=== PATIENT | female | born 1995 | race Caucasian/White ===

== ENCOUNTER 2017-04-13 21:01 | Emergency (ER) | payer OTHER ==
[2017-04-13 21:13] VITALS: PULSE 69; RESP 18; O2SAT 98
--- NOTE | 2017-04-13 22:34 | ED PDOC ---
Arrival/HPI - General Chief Complaint: Female Genitourinary Time Seen by Provider: 04/13/17 22:20 Historian: Patient - History of Present Illness Narrative History of Present Illness (Text): 04/13/17 22:30 21-year-old female presents today with concerns for a mucosal type discharge from the vagina. Patient states she started depo shot in february. states she didnt get period in february but did get menstral in March .pt states she is currenty menstrating and spotting, but noticed a thick skin-like material when she was wiping. pt came to er for evaluation due to concern for strange discharge. c/o cramping. no vomiting/diarrhea. no cp or sob. no urinary symptoms. denies . no other complaints. Time/Duration: Prior to Arrival Symptom Onset: Gradual Symptom Course: Improving Quality: Cramping Severity Level: 2 Past Medical History - Provider Review Nursing Documentation Reviewed: Yes - Travel History Have you recently traveled outside [place] w/in the past 3 mons?: No - Psychiatric Hx Substance Use: No Family/Social History - Physician Review Nursing Documentation Reviewed: Yes Family/Social History: Unknown Family HX Smoking Status: n Hx Alcohol Use: Yes Hx Substance Use: No Allergies/Home Meds Allergies/Adverse Reactions: Allergies No Known Allergies Allergy (Verified 08/14/15 21:11) Review of Systems - Review of Systems Constitutional: absent: Fatigue, Fevers Respiratory: absent: SOB, Cough Cardiovascular: absent: Chest Pain, Palpitations Gastrointestinal: Abdominal Pain (abd cramping). absent: Constipation, Diarrhea , Nausea, Vomiting Genitourinary Female: Vaginal Bleeding. absent: Dysuria, Frequency, Hematuria Musculoskeletal: absent: Arthralgias, Back Pain, Neck Pain Skin: absent: Rash, Pruritis Neurological: absent: Headache, Dizziness Physical Exam Vital Signs Reviewed: Yes Vital Signs Temp Pulse Resp BP Pulse Ox 04/13/17 21:08 98.6 F 69 18 118/64 98 Temperature: Afebrile Blood Pressure: Normal Pulse: Regular Respiratory Rate: Normal Appearance: Positive for: Well-Appearing, Non-Toxic, Comfortable Pain Distress: None Mental Status: Positive for: Alert and Oriented X 3 - Systems Exam Head: Present: Atraumatic Neck: Present: Normal Range of Motion Respiratory/Chest: Present: Clear to Auscultation, Good Air Exchange. No: Respiratory Distress, Accessory Muscle Use Cardiovascular: Present: Regular Rate and Rhythm, Normal S1, S2. No: Murmurs Abdomen: Present: Normal Bowel Sounds. No: Tenderness, Distention, Peritoneal Signs, Rebound, Guarding Genitourinary/Pelvic Exam: Present: Normal External Genitalia, Cervical os Closed, Other (chaparoned by MAXIME benavides). No: Vaginal Discharge, Vaginal Bleeding, Vaginal Lesions, Adenexal Tenderness, Adenexal Mass, Cervical Motion Tendernes, Odor Back: Present: Normal Inspection Neurological: Present: GCS=15 Skin: Present: Warm, Dry, Normal Color. No: Rashes Psychiatric: Present: Alert, Oriented x 3 Medical Decision Making ED Course and Treatment: 04/13/17 22:35 21yr old female with abdominal cramping currently menstrating with abnormal discharge which she describes as skin like/mucosal. pt showed the piece of discharge that she had; it appears to be the lining of the endometrium will check transvaginal us. pt non toxic well appearing; no distress. US;FINDINGS: Uterus/cervix: The uterus is retroverted. No myometrial mass. Ovaries: Unremarkable. Free fluid: No free fluid. Other findings: No acute findings. IMPRESSION: No acute findings. pt non toxic well appearing; no distress. stable vitals; will d/c home to f/u with MEAL COOK. discussed results with patient in depth; advised f/u with seat cover cutter . impression; vaginal bleeding motrin every 6 hours as needed for pain increase fluids follow up with the primary care physician within the next 2 days follow up with the MEAL COOK within the next 2 days return if symptoms worsen,persist or if new symptoms develop. 04/13/17 23:49 - RAD Interpretation Radiology Orders: 04/13/17 22:22 TRANSVAGINAL [US] Stat Disposition/Present on Arrival - Present on Arrival Any Indicators Present on Arrival: No History of DVT/PE: No History of Uncontrolled Diabetes: No Urinary Catheter: No History of Decub. Ulcer: No History Surgical Site Infection Following: None - Disposition Have Diagnosis and Disposition been Completed?: Yes Diagnosis: Vaginal bleeding Disposition: HOME/ ROUTINE Disposition Time: 23:50 Patient Plan: Discharge Patient Problems: Current Active Problems Problem Status Onset Vaginal bleeding Acute Condition: GOOD Additional Instructions: motrin every 6 hours as needed for pain increase fluids follow up with the primary care physician within the next 2 days follow up with the MEAL COOK within the next 2 days return if symptoms worsen,persist or if new symptoms develop. Referrals: Ida Pitt MD [Staff Provider] - Follow up with primary Kadi Gonzalez MD [Staff Provider] - Follow up with primary
[2017-04-13 23:41] VITALS: TEMP 98.6
[2017-04-14 00:19] VITALS: BP 120/67
--- NOTE | 2017-04-14 08:21 | US ---
HISTORY: vaginal bleeding COMPARISON: None available. TECHNIQUE: Transvaginal and transabdominal FINDINGS: UTERUS: Measures 9.3 x 4.0 x 5.2 cm. Normal in size and appearance. No fibroid or other mass lesion seen. ENDOMETRIUM: Measures 7 mm in diameter. No endometrial fluid or soft tissue identifiable CERVIX: No cervical abnormality identified. RIGHT OVARY: Measures 3.2 x 2.2 x 2.7 cm. No solid mass. Normal flow. LEFT OVARY: Measures 2.7 x 1.6 x 2.0 cm. No solid mass. Normal flow. FREE FLUID: No significant free fluid noted. OTHER FINDINGS: None. IMPRESSION: Unremarkable pelvic ultrasound examination. Preliminary interpretation of this examination was reported by [facility] at 11:43 p.m. on 04/13/2017. There is concurrence of this report with the preliminary interpretation.
== END 2017-04-13 23:50 | disposition home or self-care (01) ==
LOC: ED 21:01
DX: N93.9 Abnormal uterine and vaginal bleeding, unspecified (principal)

== ENCOUNTER 2017-05-31 21:01 | Emergency (ER) | payer OTHER ==
[2017-05-31 21:19] VITALS: BMI 20.9
[2017-05-31 21:33] VITALS: TEMP 98; O2SAT 99
--- NOTE | 2017-05-31 21:52 | ED PDOC ---
Arrival/HPI - General Chief Complaint: Female Genitourinary Time Seen by Provider: 05/31/17 21:27 Historian: Patient - History of Present Illness Narrative History of Present Illness (Text): 06/01/17 00:13 21 year old female who presents to the emergency department for STD testing. She states that her boyfriend was recently diagnosed with genital herpes 2 -3 days ago and wanted to get tested. Patient has no symptoms and denies any rashes , lesions, sores, urinary symptoms, vaginal discharge, fever, chills, or any other complaints. She states that she had full lab work done at her [facility] in February 2017 including lab, urinalysis and PAP smear, which were normal. Patient also states she was sexually active with her boyfriend and used no protection. Time/Duration: Other Symptom Course: Other Context: Home Past Medical History - Provider Review Nursing Documentation Reviewed: Yes - Psychiatric Hx Psychophysiologic Disorder: No Hx Substance Use: No - Surgical History Hx Orthopedic Surgery: Yes (Ankle) - Anesthesia Hx Anesthesia: Yes Family/Social History - Physician Review Nursing Documentation Reviewed: Yes Family/Social History: No Known Family HX Smoking Status: Never Smoked Hx Alcohol Use: Yes Frequency of alcohol use: Socially Hx Substance Use: No Allergies/Home Meds Allergies/Adverse Reactions: Allergies No Known Allergies Allergy (Verified 05/31/17 21:20) Review of Systems - Physician Review All systems were reviewed & negative as marked: Yes - Review of Systems Constitutional: Normal. absent: Fevers, Night Sweats Eyes: Normal ENT: Normal Genitourinary Female: Normal. absent: Dysuria, Vaginal Discharge Skin: absent: Rash, Skin Lesions, Ulcer Physical Exam Vital Signs Reviewed: Yes Vital Signs Temp Pulse Resp BP Pulse Ox 05/31/17 22:58 57 L 14 110/66 99 05/31/17 21:32 98.0 F 56 L 16 125/65 99 Temperature: Afebrile Blood Pressure: Normal Pulse: Regular Respiratory Rate: Normal Appearance: Positive for: Well-Appearing Pain Distress: None Mental Status: Positive for: Alert and Oriented X 3 - Systems Exam Head: Present: Atraumatic Pupils: Present: PERRL Extroacular Muscles: Present: EOMI Conjunctiva: Present: Normal Ears: Present: Normal Mouth: Present: Moist Mucous Membranes Pharnyx: Present: Normal Nose (External): Present: Atraumatic Neck: Present: Normal Range of Motion Respiratory/Chest: Present: Clear to Auscultation, Good Air Exchange. No: Respiratory Distress, Accessory Muscle Use Cardiovascular: Present: Regular Rate and Rhythm, Normal S1, S2. No: Murmurs Abdomen: Present: Normal Bowel Sounds. No: Tenderness, Distention, Peritoneal Signs Back: Present: Normal Inspection Upper Extremity: Present: Normal Inspection. No: Cyanosis, Edema Lower Extremity: Present: Normal Inspection. No: Edema Neurological: Present: GCS=15, CN II-XII Intact, Speech Normal Skin: Present: Warm, Dry, Normal Color. No: Rashes Psychiatric: Present: Alert, Oriented x 3, Normal Insight, Normal Concentration Medical Decision Making ED Course and Treatment: 05/31/17 21:52 Impression: 21 yo F concerned for possible genital herpes exposure. Plan: -- Urine Test -- HSV 1, HSV 2 Progress Notes: Lab for HSV 1 & 2 IGG ordered and sent. [facility] [place] (-). Patient advised to f/u results with her supervisor packing. Informed that she will be notified of any (+) results. Patient states she fully agrees with and understands discharge instructions. States that she agrees with the plan and disposition. Verbalized and repeated discharge instructions and plan. I have given the patient opportunity to ask any additional questions. - Lab Interpretations Lab Results: Lab Results 05/31/17 21:45: Urine Color Yellow, Urine Appearance Clear, Urine pH 6.0, Ur Specific [place] 1.025, Urine Protein Negative, Urine Glucose (UA) Negative, Urine Ketones Negative, Urine Blood Negative, Urine Nitrate Negative, Urine Bilirubin Negative, Urine Urobilinogen 0.2, Ur Leukocyte Esterase Negative I have reviewed the lab results: Yes - PA / HOT KNIFE FOXING CUTTER / Resident Statement MD/DO has reviewed & agrees with the documentation as recorded. - Scribe Statement The provider has reviewed the documentation as recorded by the Mattibjohn Cueto training with Tracy Marvin All medical record entries made by the Mattibjohn were at my direction and personally dictated by me. I have reviewed the chart and agree that the record accurately reflects my personal performance of the history, physical exam, medical decision making, and the department course for this patient. I have also personally directed, reviewed, and agree with the discharge instructions and disposition. Disposition/Present on Arrival - Present on Arrival Any Indicators Present on Arrival: No History of DVT/PE: No History of Uncontrolled Diabetes: No Urinary Catheter: No History of Decub. Ulcer: No History Surgical Site Infection Following: None - Disposition Have Diagnosis and Disposition been Completed?: Yes Diagnosis: Concern about sexually transmitted disease in female without diagnosis Disposition: HOME/ ROUTINE Disposition Time: 21:50 Patient Plan: Discharge Condition: STABLE Discharge Instructions (ExitCare): Sexually Transmitted Diseases (ED) Print Language: SLOVAK Additional Instructions: Follow-up with her COACH OPERATOR in 2 days without fail. Return to the emergency room at any time for any new worsening symptoms If you had an STI test: It will take 48 hours for the results. Please follow up with medical records to see the final results, if you have not heard back after 1 week Referrals: PCP,NO [Primary Care Provider] - Follow up with primary Forms: Goko (Pakistani)
[2017-05-31 21:58] LABS: URINE BILIRUBIN NEGATIVE (NEGATIVE); URINE BLOOD NEGATIVE (NEGATIVE); URINE GLUCOSE (UA) NEGATIVE (NEGATIVE); URINE LEUKOCYTE ESTERASE NEGATIVE Leu/uL (NEGATIVE); URINE NITRATE NEGATIVE (NEGATIVE); URINE PROTEIN NEGATIVE mg/dL (<30 mg/dL); URINE UROBILINOGEN 0.2 E.U./dL (<1 E.U./dL)
[2017-05-31 22:04] LABS: URINE APPEARANCE CLEAR (CLEAR); URINE COLOR YELLOW (YELLOW)
[2017-05-31 22:58] VITALS: BP 110/66; PULSE 57; RESP 14
== END 2017-05-31 23:01 | disposition home or self-care (01) ==
LOC: ED 21:01
DX: Z71.1 Person with feared health complaint in whom no diagnosis is made (principal)

== ENCOUNTER 2017-07-16 17:23 | Emergency (ER) | payer OTHER ==
[2017-07-16 17:24] VITALS: BMI 20.9
[2017-07-16] MEDS ORDERED: Sodium Chloride 0.9% 1,000 ML IV STA (17:40)
--- NOTE | 2017-07-16 17:40 | ED PDOC ---
"Arrival/HPI - General Time Seen by Provider: 07/16/17 17:31 Historian: Patient - History of Present Illness Narrative History of Present Illness (Text): 07/16/17 17:31 21 y/o female, pmh including UTI, nkda, c/o diarrhea and fatigue x 2-3 days. Pt. stated that she has been getting generalized abdominal pain with diarrhea for the past 2-3 days, average 4-5 times perday with watery stool, no recent traveling and no recent antibiotic use for the past 4 weeks, stated that she feels fatigue and tired from the diarrhea, no night sweat, no weight loss, no vaginal bleeding or discharge, no pelvic cramp, no other medical or psychological complaints. Past Medical History - Provider Review Nursing Documentation Reviewed: Yes - Psychiatric Hx Psychophysiologic Disorder: No Hx Substance Use: No - Surgical History Hx Orthopedic Surgery: Yes (Ankle) - Anesthesia Hx Anesthesia: Yes Family/Social History - Physician Review Nursing Documentation Reviewed: Yes Family/Social History: Unknown Family HX Smoking Status: Never Smoked Hx Alcohol Use: Yes Hx Substance Use: No Allergies/Home Meds Allergies/Adverse Reactions: Allergies No Known Allergies Allergy (Verified 05/31/17 21:20) Review of Systems - Review of Systems Constitutional: Fatigue. absent: Fevers Eyes: absent: Vision Changes ENT: absent: Hearing Changes Respiratory: absent: SOB, Cough Cardiovascular: absent: Chest Pain Gastrointestinal: Abdominal Pain, Diarrhea. absent: Nausea, Vomiting Genitourinary Female: absent: Dysuria, Frequency Musculoskeletal: Myalgias. absent: Arthralgias, Joint Swelling Physical Exam Vital Signs Reviewed: Yes Vital Signs Temp Pulse Resp BP Pulse Ox 07/16/17 20:50 79 18 122/69 98 07/16/17 17:42 98.2 F 86 18 124/75 98 Temperature: Afebrile Blood Pressure: Normal Pulse: Regular Respiratory Rate: Normal Appearance: Positive for: Well-Appearing, Non-Toxic Pain Distress: Moderate Mental Status: Positive for: Alert and Oriented X 3 - Systems Exam Head: Present: Atraumatic, Normocephalic Pupils: Present: PERRL Extroacular Muscles: Present: EOMI Conjunctiva: Present: Normal Mouth: Present: Moist Mucous Membranes Pharnyx: No: ERYTHEMA, EXUDATE, TONSILS ENLARGED, Peritonsilar Swelling, Muffled /Hoarse Voice, Strider, Soft Palate/Uvular Edema Nose (External): Present: Atraumatic. No: Abrasion, Contusion, Laceration, Lesions Nose (Internal): Present: Normal Inspection, No Active Bleeding. No: Rhinorrhea , Septal Deviation, Septal Hematoma, Epistaxis Neck: Present: Normal Range of Motion Respiratory/Chest: Present: Clear to Auscultation, Good Air Exchange. No: Respiratory Distress, Accessory Muscle Use Cardiovascular: Present: Regular Rate and Rhythm, Normal S1, S2. No: Murmurs Abdomen: Present: Tenderness (periumbilical and generalized tenderness), Normal Bowel Sounds. No: Distention, Peritoneal Signs, Rebound, Guarding Back: Present: Normal Inspection Upper Extremity: Present: Normal Inspection. No: Cyanosis, Edema Lower Extremity: Present: Normal Inspection. No: Edema Neurological: Present: GCS=15, Speech Normal, Motor Func Grossly Intact, Gait Normal, Memory Normal Skin: Present: Warm, Dry, Normal Color. No: Rashes Psychiatric: Present: Alert, Oriented x 3, Normal Insight, Normal Concentration Medical Decision Making ED Course and Treatment: 07/16/17 17:46 -labs/ua/stool culture -CT abdomen and pelvis with IV contrast -IVF/pepcid/tylenol -Observe and reassess 07/16/17 19:36 -Labs are non-significant -UA show no UTI -Influenza negative -Pain still persist, will proceed with the IV contrast to rule out colitis. 07/16/17 22:00 -Pain resolved, pt. is eating and drinking well. -CT show: Allowing for streak artifact, no acute solid visceral or bowel abnormality; spinal fusion -Pt. has no pelvic pain and no pelvic tenderness, pain resolved after the pepcid and tylenol, will discharge home -Discharge home with pepcid, motrin, stay hydrated, non-dairy diet, stay hydrated, bed rest, follow up with your own pmd and GI/obgyn within 2 days, return to the ER for any new or worsening signs or symptoms. - Lab Interpretations Lab Results: 07/16/17 18:55 07/16/17 18:55 Lab Results 07/16/17 18:55: WBC 8.1, RBC 5.18, Hgb 16.2 H, Hct 46.4, MCV 89.6, MCH 31.3, MCHC 34.9, RDW 12.7, Plt Count 272, MPV 10.4, Gran % 72.3 H, Lymph % (Auto) 18.2 L, [place] % (Auto) 7.2 H, Eos % (Auto) 2.1, Baso % (Auto) 0.2, Gran # 5.82, Lymph # 1.5, [place] # 0.6, Eos # 0.2, Baso # 0.02 07/16/17 18:55: Sodium 141, Potassium 4.4, Chloride 102, Carbon Dioxide 25, Anion Gap 18, BUN 11, Creatinine 0.6, Est GFR ( Amer) > 60, Est GFR (Non- Af Amer) > 60, Random Glucose 92, Calcium 9.7, Total Bilirubin 0.9, AST 43 H, ALT 16, Alkaline Phosphatase 75, Total Protein 9.1 H, Albumin 5.1 H, Globulin 4.0, Albumin/Globulin Ratio 1.3, Lipase 50 07/16/17 18:55: Urine Color Yellow, Urine Appearance Clear, Urine pH 6.0, Ur Specific [place] >= 1.030, Urine Protein Trace H, Urine Glucose (UA) Negative, Urine Ketones Negative, Urine Blood Negative, Urine Nitrate Negative, Urine Bilirubin Negative, Urine Urobilinogen 0.2, Ur Leukocyte Esterase Negative, Urine RBC 0 - 2, Urine WBC 1 - 3, Ur Epithelial Cells Many, Urine Bacteria Mod 07/16/17 18:55: Influenza Typ A,B (EIA) Negative for flu a/b I have reviewed the lab results: Yes Interpretation: No clinic. lab abnormalty - RAD Interpretation Radiology Orders: 07/16/17 17:42 ABDOMEN & PELVIS [ABD & PELVIS IV CONTRAST ONLY] [CT] Stat ABDOMEN: Liver: unremarkable Gallbladder and bile ducts: unremarkable Pancreas: unremarkable Spleen: unremarkable Adrenals: unremarkable Kidneys and ureters: unremarkable EDITH DAILY | Final Radiology Report CONFIDENTIALITY STATEMENT This report is intended only for use by the referring physician, and only in accordance with law. If you received this in error, call [phone]. Page 2 of 2 Stomach and bowel: Stomach is partially distended. Rotation is normal. Small bowel is mildly distended with fluid and air. There is no obstruction. Terminal ileum is unremarkable. Appendix is unremarkable.Colon is incompletely distended which limits evaluation. Appendix: See above. PELVIS: Bladder: unremarkable Reproductive: Uterus and right adnexa are unremarkable. There is mild prominence of the left adnexa. There are left adnexal varices. ABDOMEN and PELVIS: Intraperitoneal space: There is no significant fluid.There is no free air. Bones/joints: There are postsurgical changes of thoracolumbar spinal fusion. There is extensive streak artifact from orthopedic hardware. Allowing for streak, no acute osseous abnormalities are identified. Soft tissues: unremarkable Vasculature: Vascular structures are unremarkable. Lymph nodes: There is no pathologic adenopathy. IMPRESSION: Allowing for streak artifact, no acute solid visceral or bowel abnormality; spinal fusion Additional findings as described above. Thank you for allowing us to participate in the care of your patient. Dictated and Authenticated by: Ame Sterling MD 07/16/2017 9:40 PM Eastern Time ([place] & [place]) Bobbin Painter: Radiologist - Medication Orders Current Medication Orders: Discontinued Medications Acetaminophen (Tylenol 325mg Tab) 650 mg PO STAT STA Stop: 07/16/17 17:46 Last Admin: 07/16/17 18:50 Dose: 650 mg MAR Pain/Vitals Document 07/16/17 18:50 NH (Rec: 07/16/17 17:58 [id number]) Pain Reassessment Is This A Pain ReAssessment? No Sleep Is patient sleeping during reassessment? No Presence of Pain Presence of Pain Yes Pain Scale Used Pain Scale Used Numeric Location Pain Location Body Site Throat Famotidine (Pepcid) 20 mg IVP STAT STA Stop: 07/16/17 17:41 Last Admin: 07/16/17 18:50 Dose: 20 mg IVP Administration Document 07/16/17 18:50 NH (Rec: 07/16/17 17:59 [id number]) Charges for Administration # of IVP Administrations 1 Sodium Chloride (Sodium Chloride 0.9%) 1,000 mls @ 999 mls/hr IV .Q1H1M STA Stop: 07/16/17 18:40 Last Admin: 07/16/17 18:30 Dose: 999 mls/hr eMAR Start Stop Document 07/16/17 18:30 NH (Rec: 07/16/17 17:58 [id number]) Intravenous Solution Start Date 07/16/17 Start Time 17:58 Iohexol (Omnipaque 300 100 Ml) Confirm Administered Dose 100 ml IJ .STK-MED ONE Stop: 07/16/17 20:13 - PA / VENDING ROUTE DRIVER / Resident Statement MD/ has reviewed & agrees with the documentation as recorded. Disposition/Present on Arrival - Present on Arrival Any Indicators Present on Arrival: No History of DVT/PE: No History of Uncontrolled Diabetes: No Urinary Catheter: No History of Decub. Ulcer: No History Surgical Site Infection Following: None - Disposition Have Diagnosis and Disposition been Completed?: Yes Diagnosis: Diarrhea, Abdominal pain Disposition: HOME/ ROUTINE Disposition Time: 22:01 Patient Plan: Discharge Condition: IMPROVED Additional Instructions: -Discharge home with pepcid, motrin, stay hydrated, non-dairy diet, stay hydrated, bed rest, follow up with your own pmd and GI/obgyn within 2 days, return to the ER for any new or worsening signs or symptoms. Prescriptions: Famotidine [Pepcid] 20 mg PO BID #14 tab Ibuprofen [Motrin Tab] 600 mg PO QID PRN #24 tab PRN Reason: Other Referrals: [employer] Israel Phelan, [Primary Care Provider] - Follow up with primary Tashia Burns MD [Staff Provider] - Follow up with primary Roshni Mora MD, MD [Medical Doctor] - Follow up with primary [facility] [Outside] - Follow up with primary Forms: WORK NOTE"
[2017-07-16 17:43] VITALS: RESP 18; TEMP 98.2; O2SAT 98
[2017-07-16 19:08] LABS: BASO # 0.02 K/mm3 (0.0-2.0); BASO % 0.2 % (0.0-3.0); EOS # 0.2 (0.0-0.7); EOS % 2.1 % (1.5-5.0); GRAN # 5.82 (1.4-6.5); GRAN % 72.3 % (50.0-68.0); HEMATOCRIT 46.4 % (36.0-48.0); LYMPH # 1.5 (1.2-3.4); LYMPH % 18.2 % (22.0-35.0); MEAN CELL VOLUME 89.6 fl (80.0-105.0); MEAN CORPUSCULAR HEMOGLOBIN 31.3 pg (25.0-35.0); MEAN CORPUSCULAR HGB CONC 34.9 g/dl (31.0-37.0); MEAN PLATELET VOLUME 10.4 fl (7.0-11.0); MONO # 0.6 (0.1-0.6); MONO % 7.2 % (1.0-6.0); RED CELL DISTRIBUTION WIDTH 12.7 % (11.5-14.5); WHITE BLOOD COUNT 8.1 10^3/ul (4.5-11.0)
[2017-07-16 19:12] LABS: ALB/GLOB RATIO 1.3 (1.1-1.8); ALKALINE PHOSPHATASE 75 U/L (38-126); ALT/SGPT 16 U/L (7-56); AST/SGOT 43 U/L (14-36); BILIRUBIN,TOTAL 0.9 mg/dL (0.2-1.3); BLOOD UREA NITROGEN 11 mg/dL (7-21); CALCIUM 9.7 mg/dL (8.4-10.5); CARBON DIOXIDE 25 mmol/L (21-33); CHLORIDE 102 mmol/L (98-107); GFR AFRICAN-AMERICAN > 60; GLUCOSE,RANDOM 92 mg/dL (70-110); LIPASE 50 U/L (23-300); POTASSIUM 4.4 mmol/L (3.6-5.0); SODIUM 141 mmol/L (132-148); TOTAL PROTEIN 9.1 g/dL (5.8-8.3)
[2017-07-16 19:13] LABS: URINE BILIRUBIN NEGATIVE (NEGATIVE); URINE BLOOD NEGATIVE (NEGATIVE); URINE GLUCOSE (UA) NEGATIVE (NEGATIVE); URINE KETONE NEGATIVE (NEGATIVE); URINE LEUKOCYTE ESTERASE NEGATIVE Leu/uL (NEGATIVE); URINE PROTEIN TRACE mg/dL (<30 mg/dL); URINE UROBILINOGEN 0.2 E.U./dL (<1 E.U./dL)
[2017-07-16 19:14] LABS: URINE APPEARANCE CLEAR (CLEAR); URINE COLOR YELLOW (YELLOW)
[2017-07-16 19:43] LABS: URINE BACTERIA MOD (NEG); URINE EPITHELIAL CELLS MANY /hpf (0-5); URINE RBC 0 - 2 /hpf (0-2)
[2017-07-16] MEDS ORDERED: Iohexol 300 100 ML IJ ONE (20:12)
[2017-07-16 20:51] VITALS: BP 122/69; PULSE 79
--- NOTE | 2017-07-16 21:40 | CT ---
EXAM: CT Abdomen and Pelvis With Intravenous Contrast EXAM DATE/TIME: 07/16/2017 5:42 PM CLINICAL HISTORY: 21 years old, female; Pain; Abdominal pain; Generalized; Additional info: Diarrhea/genearlized abdominal pain x 2-3 days TECHNIQUE: Axial computed tomography images of the abdomen and pelvis with intravenous contrast. All CT scans at this facility use one or more dose reduction techniques, viz.: automated exposure control; ma/kV adjustment per patient size (including targeted exams where dose is matched to indication; i.e. head); or iterative reconstruction technique. Coronal and sagittal reformatted images were created and reviewed. CONTRAST: 95 mL of OMNI 300 administered intravenously. COMPARISON: US - TRANSVAGINAL 04/13/2017 11:21:20 PM FINDINGS: Artifacts: Streak artifact degrades image quality. Lower thorax: Heart size is normal. Lung bases are clear ABDOMEN: Liver: unremarkable Gallbladder and bile ducts: unremarkable Pancreas: unremarkable Spleen: unremarkable Adrenals: unremarkable Kidneys and ureters: unremarkable Stomach and bowel: Stomach is partially distended. Rotation is normal. Small bowel is mildly distended with fluid and air. There is no obstruction. Terminal ileum is unremarkable. Appendix is unremarkable.Colon is incompletely distended which limits evaluation. Appendix: See above. PELVIS: Bladder: unremarkable Reproductive: Uterus and right adnexa are unremarkable. There is mild prominence of the left adnexa. There are left adnexal varices. ABDOMEN and PELVIS: Intraperitoneal space: There is no significant fluid.There is no free air. Bones/joints: There are postsurgical changes of thoracolumbar spinal fusion. There is extensive streak artifact from orthopedic hardware. Allowing for streak, no acute osseous abnormalities are identified. Soft tissues: unremarkable Vasculature: Vascular structures are unremarkable. Lymph nodes: There is no pathologic adenopathy. IMPRESSION: Allowing for streak artifact, no acute solid visceral or bowel abnormality; spinal fusion Additional findings as described above.
== END 2017-07-16 22:21 | disposition home or self-care (01) ==
LOC: ED 17:23
DX: R19.7 Diarrhea, unspecified (principal); R10.9 Unspecified abdominal pain
CPT/HCPCS: 74177; 80053; 81001; 83690; 85025; 87804; 96374; 99284; J7040; Q9967